=== PATIENT | male | born 1990 | race Caucasian/White ===

== ENCOUNTER 2017-09-26 13:42 | Emergency (ER) | payer BC, SELFPAY ==
[2017-09-26] MEDS ORDERED: hydrOXYzine HCl 25 MG TAB ONE (14:33)
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
--- NOTE | 2017-09-26 15:03 | EDPHYS ---
Physician Documentation [facility] Name: Wilson Johnson Age: 26 yrs Sex: Male : 1990 Arrival Date: 09/26/2017 Time: 13:47 Bed 13 Private MD: None, None ED Physician Semaj Ross HPI: 09/26 14:54 This 26 yrs old Male presents to ER via Ambulatory with complaints of Rash. snw 14:54 The patient's rash thought to be caused by Dermatitis. The rash is located on the body snw diffusely. The rash can be described as erythematous, patchy. Onset: The symptoms/episode began/occurred acutely. Associated signs and symptoms: Pertinent positives: itching, "don't fell well". Severity of symptoms: At their worst the symptoms were moderate. Treatment given at home: none. The patient has not experienced similar symptoms in the past. The patient has not recently seen a physician. pt returned from [place] yesterday. Awoke today with current s/s. Historical: - Allergies: 13:58 No Known Allergies; aj - Home Meds: 13:58 None [Active]; aj - PMHx: 13:58 None; aj - PSHx: 13:58 None; aj - Immunization history:: Adult Immunizations up to date. - Social history:: Smoking status: Patient/guardian denies using tobacco. - Ebola Screening: : No symptoms or risks identified at this time. ROS: 14:52 Constitutional: Positive for fever, No chills or weight loss, Eyes: Negative for snw injury, pain, redness, and discharge, ENT: Negative for injury, pain, and discharge, Neck: Negative for injury, pain, and swelling, Cardiovascular: Negative for chest pain, palpitations, and edema, Respiratory: Negative for shortness of breath, cough, wheezing, and pleuritic chest pain, Abdomen/GI: Negative for abdominal pain, nausea, vomiting, diarrhea, and constipation, Back: Negative for injury and pain, : Negative for injury, bleeding, discharge, and swelling, MS/Extremity: Negative for injury and deformity, Neuro: Negative for headache, weakness, numbness, tingling, and seizure, Psych: Negative for depression, anxiety, suicide ideation, homicidal ideation, and hallucinations. 14:52 Skin: Positive for rash. Exam: 14:40 Head/Face: Normocephalic, atraumatic. Eyes: Pupils equal round and reactive to light, snw extra-ocular motions intact. Lids and lashes normal. Conjunctiva and sclera are non-icteric and not injected. Cornea within normal limits. Periorbital areas with no swelling, redness, or edema. Neck: Trachea midline, no thyromegaly or masses palpated, and no cervical lymphadenopathy. Supple, full range of motion without nuchal rigidity, or vertebral point tenderness. No Meningismus. Chest/axilla: Normal chest wall appearance and motion. Nontender with no deformity. No lesions are appreciated. Cardiovascular: Regular rate and rhythm with a normal S1 and S2. No gallops, murmurs, or rubs. Normal PMI, no JVD. No pulse deficits. Respiratory: Lungs have equal breath sounds bilaterally, clear to auscultation and percussion. No rales, rhonchi or wheezes noted. No increased work of breathing, no retractions or nasal flaring. Abdomen/GI: Soft, non-tender, with normal bowel sounds. No distension or tympany. No guarding or rebound. No evidence of tenderness throughout. Back: No spinal tenderness. No costovertebral tenderness. Full range of motion. MS/ Extremity: Pulses equal, no cyanosis. Neurovascular intact. Full, normal range of motion. Neuro: Awake and alert, GCS 15, oriented to person, place, time, and situation. Cranial nerves II-XII grossly intact. Motor strength 5/5 in all extremities. Sensory grossly intact. Cerebellar exam normal. Normal gait. 14:40 Constitutional: The patient appears alert. 14:40 ENT: External ear(s): are unremarkable, Ear canal(s): TM's: erythema, that is moderate, bilaterally, fluid levels, bilaterally, Nose: is normal, Mouth: is normal, Posterior pharynx: erythema, that is moderate, Dental exam: normal. Vital Signs: 13:58 BP 123 / 71; Pulse 99; Resp 16; Temp 100.4; Pulse Ox 99% on R/A; Weight 79.83 kg; aj Height 5 ft. 6 in. (167.64 cm); 15:30 BP 125 / 76; Pulse 95; Resp 16; Pulse Ox 99% ; jl7 13:58 Body Mass Index 28.41 (79.83 kg, 167.64 cm) rema MDM: 14:29 Patient medically screened. snw 15:27 Data reviewed: vital signs, nurses notes. Data interpreted: Pulse oximetry: on room air snw is 99 %. Interpretation: normal. Counseling: I had a detailed discussion with the patient and/or guardian regarding: the historical points, exam findings, and any diagnostic results supporting the discharge/admit diagnosis, lab results, radiology results, the need for further work-up and treatment in the hospital. 09/26 14:24 Order name: Strep; Complete Time: 15:01 snw 09/26 14:54 Order name: Throat Culture EDMS Administered Medications: 14:35 Drug: Atarax 25 mg Route: PO; jl7 15:32 Follow up: Response: No adverse reaction jl7 15:31 Drug: Zithromax 500 mg Route: PO; jl7 15:32 Follow up: Response: Medication administered at discharge. jl7 Disposition: 22:11 Co-signature as Attending Physician, Semaj Ross MD I agree with the assessment and kdr plan of care. Disposition: 09/26/17 15:02 Discharged to Home. Impression: Acute serous otitis media, bilateral, Rash and other nonspecific skin eruption. - Condition is Stable. - Discharge Instructions: Otitis Media, Adult, Rash. - Prescriptions for Zyrtec 10 mg Oral Tablet - take 1 tablet by ORAL route once daily As needed; 20 tablet. Zithromax 500 mg Oral Tablet - take 1 tablet by ORAL route once daily for 5 days; 5 tablet. - Medication Reconciliation Form, Thank You Letter, Antibiotic Education, Prescription Opioid Use form. - Follow up: Private Physician; When: 2 - 3 days; Reason: Recheck today's complaints, Continuance of care, Re-evaluation by your physician. Follow up: Emergency Department; When: As needed; Reason: Worsening of condition. Signatures: Dispatcher [employer] EDBeba Odell, Semaj Stack RN, MD MD kdr Therrien, Shelly, INFORMATICS MANAGER-C INFORMATICS MANAGER-Csnw Reena Styles RN RN jl7 Corrections: (The following items were deleted from the chart) 15:38 15:02 09/26/2017 15:02 Discharged to Home. Impression: Acute serous otitis media, jl7 bilateral; Rash and other nonspecific skin eruption. Condition is Stable. Forms are Medication Reconciliation Form, Thank You Letter, Antibiotic Education, Prescription Opioid Use. Follow up: Private Physician; When: 2 - 3 days; Reason: Recheck today's complaints, Continuance of care, Re-evaluation by your physician. Follow up: Emergency Department; When: As needed; Reason: Worsening of condition. snw
[2017-09-26] MEDS ORDERED: AZITHROMYCIN 250 MG TAB ONE (15:29)
== END 2017-09-26 15:38 | disposition home or self-care (01) ==
LOC: ER 13:42
DX: H65.03 Acute serous otitis media, bilateral (principal); R21 Rash and other nonspecific skin eruption
CPT/HCPCS: 87070; 87081; 99283